=== PATIENT | male | born 1990 | race American Indian/Alaskan Native ===

== ENCOUNTER 2018-03-13 23:53 | Emergency (ER) | payer BC ==
[2018-03-14 00:30] VITALS: BP 119/78
[2018-03-14] MEDS ORDERED: MOTRIN PO ONE (00:32)
--- NOTE | 2018-03-14 01:47 | XRay Report ---
FINAL REPORT EXAM: XR Right Tib/Fib CLINICAL INDICATIONS: RT TIB/FIB SWELLING FINDINGS: AP and lateral views of the right tibia and fibula were acquired and demonstrate no fracture of the right tibia or fibula. No foreign body is seen. IMPRESSION: NO FRACTURE OR FOREIGN BODY OF THE RIGHT TIBIA OR FIBULA
--- NOTE | 2018-03-14 05:22 | Emergency Department Report ---
ED Lower Extremity HPI - General Chief Complaint: Extremity Injury, Lower Stated Complaint: RT LEG PAIN Time Seen by Provider: 03/14/18 05:02 Source: patient Mode of arrival: Ambulatory Limitations: No Limitations - History of Present Illness Initial Comments: 27 year-old male reports that he was playing football and stepped into a hole. Patient reports that he is able to ambulate without any difficulties. MD Complaint: leg injury Injury: Leg: Right Type of Injury: other (abrasion) Severity scale (0 -10): 0 Context: fall - Related Data Home Medications Medication Instructions Recorded Confirmed Last Taken No Known Home Medications [No 03/14/18 03/14/18 Unknown Reported Home Medications] Allergies Allergy/AdvReac Type Severity Reaction Status Date / Time No Known Allergies Allergy Unverified 03/14/18 00:30 ED Review of Systems ROS: Stated complaint: RT LEG PAIN Other details as noted in HPI Comment: All other systems reviewed and negative Musculoskeletal: arthralgia (Rt leg) ED Past Medical Hx - Past Medical History Previous Medical History?: No - Surgical History Past Surgical History?: No - Social History Smoking Status: Never Smoker Substance Use Type: None - Medications Home Medications: Home Medications Medication Instructions Recorded Confirmed Last Taken Type No Known Home Medications [No 03/14/18 03/14/18 Unknown History Reported Home Medications] ED Physical Exam - General Limitations: No Limitations General appearance: alert, in no apparent distress - Head Head exam: Present: atraumatic, normocephalic - ENT ENT exam: Present: mucous membranes moist - Expanded Lower Extremity Exam Right Hip exam: Present: normal inspection, full ROM. Absent: tenderness Upper Leg exam: Present: normal inspection. Absent: full ROM, tenderness Knee exam: Present: normal inspection, full ROM. Absent: tenderness Lower Leg exam: Present: abrasion ED Course Vital Signs 03/14/18 00:25 Temperature 98.2 F Pulse Rate 92 H Blood Pressure 119/78 O2 Sat by Pulse 100 Oximetry ED Lower Extremity MDM - Radiology Data Radiology results: report reviewed, image reviewed FINAL REPORT EXAM: XR Right Tib/Fib CLINICAL INDICATIONS: RT TIB/FIB SWELLING FINDINGS: AP and lateral views of the right tibia and fibula were acquired and demonstrate no fracture of the right tibia or fibula. No foreign body is seen. IMPRESSION: NO FRACTURE OR FOREIGN BODY OF THE RIGHT TIBIA OR FIBULA Transcribed By: AYLIN Dictated By: GUDELIA DE LA GARZA MD Electronically Authenticated By: GUDELIA DE LA GARZA MD Signed Date/Time: 03/14/18139 DD/ 9 TD/TT: 03/14/18139 - Medical Decision Making Patient's been evaluated by this provider fast track. X-rays were ordered which showed normal examination. Discussed the patient he can take over-the- counter Tylenol or Motrin if he has any pain. Patient reports pain is 0 out of 10 to ER visit. Discussed patient keep the abrasion clean and dry [address] Neosporin ointment if he will light. The patient has any problems at resides he can follow-up with her primary care provider. Referred patient to [address] [place] [address]. Critical care attestation.: If time is entered above; I have spent that time in minutes in the direct care of this critically ill patient, excluding procedure time. ED Disposition Clinical Impression: Leg abrasion, non-infected Disposition: DC-01 TO HOME OR SELFCARE Is pt being admited?: No Does the pt Need Aspirin: No Condition: Stable Instructions: Abrasion (ED) Referrals: PRIMARY CAREMD [Primary Care Provider] - 3-5 Days [facility] [Provider Group] - 3-5 Days
== END 2018-03-14 05:40 | disposition home or self-care (01) ==
LOC: ED 23:53
DX: S80.811A Abrasion, right lower leg, initial encounter (principal); W17.2XXA Fall into hole, initial encounter; Y93.61 Activity, american tackle football; Y92.89 Other specified places as the place of occurrence of the external cause; Y99.8 Other external cause status
CPT/HCPCS: 99283